=== PATIENT | male | born 1975 | race Caucasian/White ===

== ENCOUNTER 2016-10-07 13:14 | Emergency (ER) | payer BC ==
[2016-10-07 13:26] VITALS: RESP 16; TEMP 98.6
[2016-10-07] MEDS ORDERED: LET GEL TOPICAL 1 EA SYR TP ONE (15:52)
[2016-10-07] MEDS ORDERED: TDAP ADULT 0.5 ML INJ (BOOSTRIX) IM ONE (15:54)
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
[2016-10-07 17:19] VITALS: BP 143/75; PULSE 72; O2SAT 97
== END 2016-10-07 17:19 | disposition home or self-care (01) ==
PROC: 0HQLXZZ Repair Left Lower Leg Skin, External Approach (ICD-10-PCS; principal; 2016-10-07)
DX: S81.012A Laceration without foreign body, left knee, initial encounter (principal); S80.212A Abrasion, left knee, initial encounter; Z23 Encounter for immunization; V18.2XXA Unspecified pedal cyclist injured in noncollision transport accident in nontraffic accident, initial encounter